=== PATIENT | female | born 1995 | race Caucasian/White ===

== ENCOUNTER 2017-09-18 18:46 | Emergency (ER) | payer OTHER ==
[~2017-09-18] VITALS: Ht 157.5 cm; Wt 63.6 kg
[2017-09-18 18:54] VITALS: BP 125/74; TEMP 98.6
[2017-09-18] MEDS ORDERED: DOXYCYCLINE HY100 MG PO (18:59)
[2017-09-18] MEDS ORDERED: ALDACTONE 25MG25 M1 PO (18:59)
[2017-09-18] MEDS ORDERED: BIRTH CONTROL (19:00)
[2017-09-18 20:29] VITALS: PULSE 96
== END 2017-09-18 20:30 | disposition home or self-care (01) ==
LOC: COL.ER 18:46
DX: R10.31 Right lower quadrant pain (principal)
CPT/HCPCS: J7030; Q9967